=== PATIENT | male | born 1990 | race Caucasian/White ===

== ENCOUNTER 2020-07-31 15:48 | Emergency (ER) | payer MEDICARE, MEDICAID ==
[~2020-07-31] VITALS: Ht 167.6 cm; Wt 72.0 kg
[2020-07-31 17:44] LABS: BASOPHILS % (AUTO) 0.4 % (0-1); EOSINOPHILS # (AUTO) 0.1 X10'3 (0-0.9); EOSINOPHILS % (AUTO) 1.1 % (0-6); HEMATOCRIT 45.9 % (42.0-52.0); HEMOGLOBIN 15.4 g/dl (14.0-17.9); LYMPHOCYTES # (AUTO) 1.9 X10'3 (1.1-4.8); LYMPHOCYTES % (AUTO) 20.5 % (21-51); MEAN CORPUSCULAR HEMOGLOBIN 30.4 PG (27.0-31.0); MEAN CORPUSCULAR HGB CONC 33.7 g/dL (33.0-36.5); MEAN CORPUSCULAR VOLUME 90.5 FL (78-98); MEAN PLATELET VOLUME 8.9 FL (7.4-10.4); MONOCYTES # (AUTO) 0.8 X10'3 (0-0.9); MONOCYTES % (AUTO) 8.3 % (2-12); NEUTROPHILS # (AUTO) 6.3 X10'3 (1.8-7.7); NEUTROPHILS % (AUTO) 69.7 % (42-75); PLATELET COUNT 192 X10'3 (140-440); RED BLOOD COUNT 5.07 X10'6 (4.70-6.10); RED CELL DISTRIBUTION WIDTH 13.7 % (11.5-14.5); WHITE BLOOD COUNT 9.1 X10'3 (4.5-11.0)
[2020-07-31 17:45] LABS: URINE AMPHETAMINE SCREEN NEGATIVE (Neg); URINE BARBITUATE SCREEN NEGATIVE (Neg); URINE BENZODIAZEPINES SCREEN NEGATIVE (Neg); URINE CANNABINOID SCREEN POSITIVE (Neg); URINE COCAINE SCREEN NEGATIVE (Neg); URINE METHADONE SCREEN NEGATIVE (Neg); URINE OPIATE SCREEN NEGATIVE (Neg); URINE PHENCYCLIDINE SCREEN NEGATIVE (Neg)
[2020-07-31 18:05] LABS: ALANINE AMINOTRANSFERASE 39 U/L (12-78); ALBUMIN 4.4 G/DL (3.4-5.0); ALBUMIN/GLOBULIN RATIO 1.2 (1.1-1.5); ALKALINE PHOSPHATASE 75 IU/L (46-116); ANION GAP 6 (8-16); ASPARTATE AMINO TRANSFERASE 41 U/L (10-37); BILIRUBIN,TOTAL 0.4 MG/DL (0.1-1.0); BLOOD UREA NITROGEN 16 MG/DL (7-18); BUN/CREATININE RATIO 17.6 (5.4-32.0); CALCIUM 9.9 MG/DL (8.5-10.1); CHLORIDE 105 MMOL/L (99-107); CREATININE 0.91 MG/DL (0.60-1.10); GLUCOSE 103 MG/DL (70-104); POTASSIUM 3.9 MMOL/L (3.5-5.1); SODIUM 142 MMOL/L (135-145); TOTAL CARBON DIOXIDE 31.1 MMOL/L (24-32); TOTAL PROTEIN 8.2 G/DL (6.4-8.2); eGFR > 90 ML/MIN
[2020-07-31 18:14] LABS: ETHANOL < 0.010 GM/DL (0.0-0.010)
[2020-07-31] MEDS ORDERED: INSU100C4 SQ (18:37)
[2020-07-31] MEDS ORDERED: INSU100V9 SQ (18:37)
[2020-07-31] MEDS ORDERED: ARIP5TAB60 PO (18:37)
--- NOTE | 2020-07-31 18:37 | NUR ---
med rec completed based off pt external med history as pt was unsure of medication name (rey). pt states "that sounds right."
--- NOTE | 2020-07-31 19:19 | NUR ---
Patients blood sugar is 57. He remains well oriented. Patient given apple juice and a turkey sandwich. We are awaiting his carb controlled meal. Patient exhibited some shaking.
--- NOTE | 2020-07-31 19:44 | NUR ---
Patient is feeling better now. Glucose is 83 now. Patient is being evaluated by [facility].
--- NOTE | 2020-07-31 21:36 | NUR ---
BRIDGETT Harrison from [facility] is consulting with VERONICA Molina about possibly releasing this patient
[2020-07-31] MEDS ORDERED: tobramycin/dexamethasone ophthalmic suspension LEFTEYE ONE (21:50)
--- NOTE | 2020-07-31 22:01 | NUR ---
Per VERONICA Molina, V/O to send Tobramycin/dexemethasone eye gtt's home with patient. To be used in left eye, QID.
--- NOTE | 2020-07-31 22:13 | NUR ---
Discharge note signed. Patient exhibits understanding of instructions. Patient is awaiting his caregiver to arrive.
[2020-07-31 22:15] VITALS: BP 114/85
[2020-08-01] MEDS ORDERED: tobramycin/dexamethasone ophthalmic suspension LEFTEYE ONE (08:00)
== END 2020-07-31 22:21 | disposition home or self-care (01) ==
LOC: ER 15:48
DX: R45.1 Restlessness and agitation (principal); R45.851 Suicidal ideations; E11.9 Type 2 diabetes mellitus without complications; Z79.4 Long term (current) use of insulin; Z79.899 Other long term (current) drug therapy
CPT/HCPCS: 36415; 80053; 80305; 80320; 82948; 84443; 85025; 99285

== ENCOUNTER 2020-09-30 15:34 | Emergency (ER) | payer MEDICARE, MEDICAID ==
[~2020-09-30] VITALS: Ht 180.3 cm; Wt 74.1 kg
[~2020-09-30 15:34] MED LIST: ARIP5TAB60 PO; INSU100C4 SQ; INSU100V9 SQ
[2020-09-30] MEDS ORDERED: diphenhydrAMINE 25mg capsule PO ONE ×2 (16:45→17:35)
[2020-09-30] MEDS ORDERED: LORazepam 1 MG tablet PO ONE ×2 (16:45→17:35)
[2020-09-30 17:08] LABS: CLARITY,URINE CLEAR (Clear); COLOR,URINE YELLOW (Yellow); GLUCOSE, URINE NEGATIVE (Neg); KETONES,URINE NEGATIVE (Neg); LEUKOCYTE ESTERASE ,URINE NEGATIVE (Neg); NITRITES, URINE NEGATIVE (Neg); OCCULT BLOOD,URINE NEGATIVE (Neg); PROTEIN,URINE NEGATIVE (Neg); UROBILINOGEN,URINE 0.2 E.U/dL (0.2-1.0)
[2020-09-30 17:10] LABS: UA COLLECTION TYPE CLN CATCH MIDSTREAM
[2020-09-30 17:20] LABS: URINE AMPHETAMINE SCREEN NEGATIVE (Neg); URINE BARBITUATE SCREEN NEGATIVE (Neg); URINE BENZODIAZEPINES SCREEN NEGATIVE (Neg); URINE CANNABINOID SCREEN NEGATIVE (Neg); URINE COCAINE SCREEN NEGATIVE (Neg); URINE METHADONE SCREEN NEGATIVE (Neg); URINE OPIATE SCREEN NEGATIVE (Neg); URINE PHENCYCLIDINE SCREEN NEGATIVE (Neg)
--- NOTE | 2020-09-30 17:27 | NUR ---
VASU CLAIRE [phone] [facility] CAREGIVER HE IS HER GRANDSON'S FATHER
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
--- NOTE | 2020-09-30 17:30 | NUR ---
SPOKE TO PATIENT AND CAREGIVER. VERONICA SAMUEL IS AWARE THAT PATIENT IS WEARING HIS INSULIN PUMP AND HAS THE ABILITY TO BOLUS HIMSELF
[2020-09-30 17:52] LABS: BASOPHILS % (AUTO) 0.6 % (0-1); EOSINOPHILS # (AUTO) 0.3 X10'3 (0-0.9); HEMATOCRIT 46.6 % (42.0-52.0); HEMOGLOBIN 15.9 g/dl (14.0-17.9); LYMPHOCYTES # (AUTO) 2.1 X10'3 (1.1-4.8); LYMPHOCYTES % (AUTO) 28.3 % (21-51); MEAN CORPUSCULAR HEMOGLOBIN 30.8 PG (27.0-31.0); MEAN CORPUSCULAR HGB CONC 34.2 g/dL (33.0-36.5); MEAN CORPUSCULAR VOLUME 90.2 FL (78-98); MEAN PLATELET VOLUME 9.6 FL (7.4-10.4); MONOCYTES # (AUTO) 0.6 X10'3 (0-0.9); MONOCYTES % (AUTO) 7.8 % (2-12); NEUTROPHILS # (AUTO) 4.4 X10'3 (1.8-7.7); NEUTROPHILS % (AUTO) 59.3 % (42-75); PLATELET COUNT 181 X10'3 (140-440); RED BLOOD COUNT 5.16 X10'6 (4.70-6.10); RED CELL DISTRIBUTION WIDTH 12.9 % (11.5-14.5); WHITE BLOOD COUNT 7.4 X10'3 (4.5-11.0)
[2020-09-30 18:06] LABS: ALANINE AMINOTRANSFERASE 30 U/L (12-78); ALBUMIN 4.1 G/DL (3.4-5.0); ALBUMIN/GLOBULIN RATIO 1.1 (1.1-1.5); ALKALINE PHOSPHATASE 79 IU/L (46-116); ANION GAP 6 (8-16); ASPARTATE AMINO TRANSFERASE 22 U/L (10-37); BILIRUBIN,TOTAL 0.4 MG/DL (0.1-1.0); BLOOD UREA NITROGEN 21 MG/DL (7-18); BUN/CREATININE RATIO 21.9 (5.4-32.0); CALCIUM 9.3 MG/DL (8.5-10.1); CHLORIDE 104 MMOL/L (99-107); CREATININE 0.96 MG/DL (0.60-1.10); ETHANOL < 0.010 GM/DL (0.0-0.010); GLUCOSE 202 MG/DL (70-104); SODIUM 140 MMOL/L (135-145); TOTAL CARBON DIOXIDE 30.1 MMOL/L (24-32); eGFR > 90 ML/MIN
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
[2020-09-30] MEDS ORDERED: ARIP10TA8 PO (20:19)
--- NOTE | 2020-09-30 20:52 | NUR ---
The caregiver, Mary Alice Pollack, would like to be present when [facility] comes to assess the patient.
--- NOTE | 2020-09-30 21:28 | NUR ---
The patient appears to be sleeping
--- NOTE | 2020-10-01 00:04 | NUR ---
The patient appears to be sleeping
--- NOTE | 2020-10-01 01:21 | NUR ---
The patient appears to be sleeping.
--- NOTE | 2020-10-01 04:19 | NUR ---
The patient appears to be sleeping
[2020-10-01 06:00] VITALS: BP 111/65
--- NOTE | 2020-10-01 06:45 | NUR ---
Dr. Wilson spoke with regarding pt insulin pump. Received VO pt to continue home regimen for basal and boluses. Pt currently with continuous/basal rate of 25units/per 24hour.
[2020-10-01] MEDS ORDERED: ARIPIPRAZOLE 10 MG TABLET PO SCH (08:00)
--- NOTE | 2020-10-01 08:19 | NUR ---
Pt received 2.4unit insulin bolus per pt pump calculation based on
--- NOTE | 2020-10-01 08:20 | NUR ---
continue of previous note @[id number] Pt received 2.4unit insulin bolus per pt pump calculation based on breakfast carb intake of 24 grams
--- NOTE | 2020-10-01 08:50 | NUR ---
Pt speaking [facility] worker
--- NOTE | 2020-10-01 09:54 | NUR ---
Pt being dc'd home with manager career Mary Alice.
== END 2020-10-01 10:10 | disposition home or self-care (01) ==
LOC: ER 15:34
DX: R45.851 Suicidal ideations (principal); F32.9 Major depressive disorder, single episode, unspecified; E11.9 Type 2 diabetes mellitus without complications; Z98.890 Other specified postprocedural states; Z79.899 Other long term (current) drug therapy
CPT/HCPCS: 36415; 80053; 80305; 80320; 81003; 82948; 85025; 99285; Q0163; 99284